=== PATIENT | female | born 1950 | race Caucasian/White ===

== ENCOUNTER 2018-04-14 21:01 | Inpatient (IN) ==
[2018-04-14] MEDS ORDERED: VANCOMYCIN INJ 1,000 MG in SODIUM CHLORIDE 0.9% 250 ML IV STA (21:39)
[2018-04-14] MEDS ORDERED: CLINDAMYCIN INJ 600 MG in PREMIX 1 EACH IV STA (21:39)
[2018-04-14 23:05] LABS: Basophils # 0.1 10*3/uL (0.0-0.2); Basophils % 0.3 % (0.0-0.8); Eosinophils % 0.3 % (0.00-10.9); Hemoglobin 13.5 GM/DL (12.0-16.0); Immature Granulocytes % 0.8 %; Immature Granulocytes Absolute 0.12 #; Lymphocytes # 1.6 10*3/uL (1.4-4.0); Mean Corpuscular HGB Conc 33.8 GM/DL (32-36); Mean Corpuscular Hemoglobin 32 PG (27-34); Mean Platelet Volume 9.8 FL (9.6-12.0); Neutrophils # 11.6 10*3/uL (1.4-7.4); Neutrophils % 80.6 % (38.7-73.9); Platelet Count 147 T/CUMM (130-400); Red Blood Count 4.21 MC/CUMM (3.8-5.5); Red Cell Distribution Width 13.1 % (9.3-17.3); White Blood Count 14.4 T/CUMM (4-12)
[2018-04-14 23:37] LABS: Albumin 3.1 G/DL (3.4-5.0); Bilirubin,Total 0.9 MG/DL (0.2-1.0); Calcium 9.2 MG/DL (8.5-10.1); Osmolality,Calculated 280.4 MOS/KG (273-304); Potassium 3.8 MMOL/L (3.5-5.1); Total Protein 7.6 G/DL (6.4-8.3)
[2018-04-15] MEDS ORDERED: ACETAMINOPHEN 500 MG TABLET PO PRN (00:54)
[2018-04-15] MEDS ORDERED: ONDANSETRON 4 MG/2 ML VIAL IV PRN (01:48)
[2018-04-15] MEDS ORDERED: DEXTROSE 50% 25 GM/50 ML VIAL IV PRN (01:48)
[2018-04-15] MEDS ORDERED: GLUCAGON 1 MG VIAL IM PRN (01:48)
[2018-04-15] MEDS: SODIUM CHLORIDE 0.9% 1,000 ML IV SCH ×3 (02:47→23:10)
[2018-04-15] MEDS: CLINDAMYCIN INJ 600 MG in PREMIX 1 EACH IV SCH ×3 (04:41→16:35)
[2018-04-15 06:42] LABS: Basophils % 0.3 % (0.0-0.8); Eosinophils % 0.3 % (0.00-10.9); Hematocrit 36.7 VOL% (35.7-47.0); Hemoglobin 12.7 GM/DL (12.0-16.0); Immature Granulocytes % 1.6 %; Immature Granulocytes Absolute 0.21 #; Lymphocytes # 1.8 10*3/uL (1.4-4.0); Lymphocytes % 13.8 % (21.3-54.2); Mean Corpuscular HGB Conc 34.6 GM/DL (32-36); Mean Corpuscular Hemoglobin 32 PG (27-34); Mean Corpuscular Volume 92.4 FL (87-102); Mean Platelet Volume 9.9 FL (9.6-12.0); Monocytes # 1.2 10*3/uL (0.11-0.8); Monocytes % 9.1 % (1.7-12.7); Neutrophils % 74.9 % (38.7-73.9); Platelet Count 136 T/CUMM (130-400); Red Blood Count 3.97 MC/CUMM (3.8-5.5); Red Cell Distribution Width 13.2 % (9.3-17.3); White Blood Count 13.4 T/CUMM (4-12)
[2018-04-15 06:54] LABS: Albumin 2.7 G/DL (3.4-5.0); Bilirubin,Total 1.3 MG/DL (0.2-1.0); Osmolality,Calculated 270.5 MOS/KG (273-304); Potassium 3.4 MMOL/L (3.5-5.1); Total Protein 6.9 G/DL (6.4-8.3)
[2018-04-15] MEDS: INSULIN REGULAR 100 UNIT/ML SUBCUT SCH ×4 (08:54→21:59)
[2018-04-15] MEDS: PANTOPRAZOLE 40 MG TABLET PO SCH (08:54)
[2018-04-15] MEDS: traMADol 50 MG TABLET PO SCH ×2 (16:35→21:59)
[2018-04-15 17:27] LABS: Apearance,Urine CLEAR (Clear); Bacteria,Urine Occasional /HPF (Few); Bilirubin,Urine Negative (Negative); Blood, Urine Small mg/dL (Negative); Glucose,Urine (UA) >=500 mg/dL (Negative); Ketones,Urine 5 mg/dL (Negative); Nitrite,Urine Negative (Negative); Protein,Urine Negative; RBC,Urine 2 /HPF (0-4); Squamous Epithelial Cell,Urine Occasional /HPF (0-10); Urine Color Yellow (Yellow); Urine Specific Gravity 1.011 (1.001-1.035); Urine Urobilinogen < 2.0 EU/DL (0.2-1.0); WBC,Urine 3 /HPF (0-6)
[2018-04-15] MEDS ORDERED: VANCOMYCIN INJ 1,750 MG in SODIUM CHLORIDE 0.9% 500 ML IV SCH (21:00)
[2018-04-15] MEDS: PRAVASTATIN 40 MG TABLET PO SCH (21:59)
[2018-04-16] MEDS: CLINDAMYCIN INJ 600 MG in PREMIX 1 EACH IV SCH ×2 (01:28→06:08)
[2018-04-16] MEDS: SODIUM CHLORIDE 0.9% 1,000 ML IV SCH ×3 (03:00→18:49)
[2018-04-16 06:15] LABS: Basophils % 0.3 % (0.0-0.8); Eosinophils # 0.1 10*3/uL (0.0-0.87); Eosinophils % 0.4 % (0.00-10.9); Hematocrit 35.2 VOL% (35.7-47.0); Hemoglobin 12.1 GM/DL (12.0-16.0); Immature Granulocytes % 0.9 %; Immature Granulocytes Absolute 0.12 #; Lymphocytes % 15.6 % (21.3-54.2); Mean Corpuscular HGB Conc 34.4 GM/DL (32-36); Mean Corpuscular Hemoglobin 32 PG (27-34); Mean Corpuscular Volume 93.6 FL (87-102); Mean Platelet Volume 9.8 FL (9.6-12.0); Monocytes # 1.2 10*3/uL (0.11-0.8); Monocytes % 9.4 % (1.7-12.7); Neutrophils # 9.5 10*3/uL (1.4-7.4); Neutrophils % 73.4 % (38.7-73.9); Platelet Count 160 T/CUMM (130-400); Red Blood Count 3.76 MC/CUMM (3.8-5.5); Red Cell Distribution Width 13.2 % (9.3-17.3)
[2018-04-16 06:43] LABS: Calcium 8.2 MG/DL (8.5-10.1); Osmolality,Calculated 279.7 MOS/KG (273-304); Potassium 3.7 MMOL/L (3.5-5.1)
[2018-04-16] MEDS ORDERED: DIAZEPAM 5 MG TABLET PO ONE (08:21)
[2018-04-16] MEDS ORDERED: FAMOTIDINE 20 MG TABLET PO ONE (08:21)
[2018-04-16] MEDS: ALBUTEROL 2.5 MG/3 ML NEB RESP TX SCH (09:20)
[2018-04-16] MEDS: INSULIN REGULAR 100 UNIT/ML SUBCUT SCH ×4 (09:45→21:22)
[2018-04-16] MEDS ORDERED: BUPIVACAINE MPF 0.25% 30 ML VIAL ONE (09:47)
[2018-04-16] MEDS ORDERED: LIDOCAINE 1% 20 ML VIAL ONE (09:47)
[2018-04-16] MEDS ORDERED: PROPOFOL 200 MG/20 ML VIAL IV ONE (11:10)
[2018-04-16] MEDS ORDERED: ONDANSETRON 4 MG/2 ML VIAL ONE (11:11)
[2018-04-16] MEDS ORDERED: fentaNYL 100 MCG/2 ML VIAL ONE (11:11)
[2018-04-16] MEDS ORDERED: SODIUM CHLORIDE 0.9% 100 ML IV ONE (11:11)
[2018-04-16] MEDS ORDERED: MIDAZOLAM 2 MG/2 ML VIAL ONE (11:11)
[2018-04-16] MEDS: DULoxetine 30 MG CAPSULE PO SCH (12:34)
[2018-04-16] MEDS: VANCOMYCIN INJ 1,750 MG in SODIUM CHLORIDE 0.9% 500 ML IV SCH ×2 (12:34→21:22)
[2018-04-16] MEDS: PANTOPRAZOLE 40 MG TABLET PO SCH (12:35)
[2018-04-16] MEDS: GLIMEPIRIDE 2 MG TABLET PO SCH (12:35)
[2018-04-16] MEDS: traMADol 50 MG TABLET PO SCH ×3 (12:35→21:21)
[2018-04-16] MEDS: UMECLIDINIUM BROMIDE INH SCH (12:36)
[2018-04-16] MEDS: ACETAMINOPHEN 325 MG TABLET PO PRN (15:34)
[2018-04-16] MEDS: PRAVASTATIN 40 MG TABLET PO SCH (21:20)
[2018-04-17 05:13] LABS: Basophils % 0.4 % (0.0-0.8); Eosinophils # 0.1 10*3/uL (0.0-0.87); Eosinophils % 1.1 % (0.00-10.9); Hematocrit 32.4 VOL% (35.7-47.0); Hemoglobin 10.9 GM/DL (12.0-16.0); Immature Granulocytes % 1.1 %; Immature Granulocytes Absolute 0.12 #; Lymphocytes # 1.8 10*3/uL (1.4-4.0); Lymphocytes % 16.4 % (21.3-54.2); Mean Corpuscular HGB Conc 33.6 GM/DL (32-36); Mean Corpuscular Hemoglobin 32 PG (27-34); Mean Corpuscular Volume 95.9 FL (87-102); Mean Platelet Volume 9.9 FL (9.6-12.0); Monocytes # 0.9 10*3/uL (0.11-0.8); Neutrophils # 8.2 10*3/uL (1.4-7.4); Platelet Count 160 T/CUMM (130-400); Red Blood Count 3.38 MC/CUMM (3.8-5.5); Red Cell Distribution Width 13.2 % (9.3-17.3); White Blood Count 11.2 T/CUMM (4-12)
[2018-04-17 05:51] LABS: Calcium 7.8 MG/DL (8.5-10.1); Osmolality,Calculated 281.5 MOS/KG (273-304); Potassium 3.2 MMOL/L (3.5-5.1)
[2018-04-17] MEDS: SODIUM CHLORIDE 0.9% 1,000 ML IV SCH ×3 (06:32→18:57)
[2018-04-17] MEDS: ALBUTEROL 2.5 MG/3 ML NEB RESP TX SCH (06:43)
[2018-04-17] MEDS: VANCOMYCIN INJ 1,750 MG in SODIUM CHLORIDE 0.9% 500 ML IV SCH ×2 (08:56→21:00)
[2018-04-17] MEDS: DULoxetine 30 MG CAPSULE PO SCH (08:57)
[2018-04-17] MEDS: PANTOPRAZOLE 40 MG TABLET PO SCH (08:57)
[2018-04-17] MEDS: INSULIN REGULAR 100 UNIT/ML SUBCUT SCH ×4 (08:57→23:55)
[2018-04-17] MEDS: GLIMEPIRIDE 2 MG TABLET PO SCH (08:57)
[2018-04-17] MEDS: traMADol 50 MG TABLET PO SCH ×3 (08:57→20:59)
[2018-04-17] MEDS: UMECLIDINIUM BROMIDE INH SCH ×2 (09:51→09:54)
[2018-04-17] MEDS: POTASSIUM CHLORIDE 20 MEQ TABLET PO SCH ×2 (09:54→20:59)
[2018-04-17] MEDS: SODIUM HYPOCHLORITE 0.25% IRRIG 473 ML BOTTLE TOP SCH (11:19)
[2018-04-17] MEDS: CLINDAMYCIN INJ 600 MG in PREMIX 1 EACH IV SCH ×2 (12:56→21:00)
[2018-04-17] MEDS: PRAVASTATIN 40 MG TABLET PO SCH (20:59)
[2018-04-17] MEDS: traZODone 50 MG TABLET PO PRN (21:01)
[2018-04-18 04:31] LABS: Basophils # 0.1 10*3/uL (0.0-0.2); Basophils % 0.6 % (0.0-0.8); Eosinophils # 0.1 10*3/uL (0.0-0.87); Eosinophils % 1.2 % (0.00-10.9); Hematocrit 34.3 VOL% (35.7-47.0); Hemoglobin 11.3 GM/DL (12.0-16.0); Immature Granulocytes % 1.6 %; Immature Granulocytes Absolute 0.16 #; Lymphocytes # 1.6 10*3/uL (1.4-4.0); Lymphocytes % 15.2 % (21.3-54.2); Mean Corpuscular HGB Conc 32.9 GM/DL (32-36); Mean Corpuscular Hemoglobin 31 PG (27-34); Mean Corpuscular Volume 95.3 FL (87-102); Mean Platelet Volume 9.8 FL (9.6-12.0); Monocytes # 0.8 10*3/uL (0.11-0.8); Monocytes % 7.6 % (1.7-12.7); Neutrophils # 7.6 10*3/uL (1.4-7.4); Neutrophils % 73.8 % (38.7-73.9); Platelet Count 201 T/CUMM (130-400); Red Cell Distribution Width 13.1 % (9.3-17.3); White Blood Count 10.3 T/CUMM (4-12)
[2018-04-18 05:06] LABS: Calcium 7.9 MG/DL (8.5-10.1); Osmolality,Calculated 283.4 MOS/KG (273-304); Potassium 3.4 MMOL/L (3.5-5.1)
[2018-04-18] MEDS: CLINDAMYCIN INJ 600 MG in PREMIX 1 EACH IV SCH ×3 (05:54→20:27)
[2018-04-18] MEDS: SODIUM CHLORIDE 0.9% 1,000 ML IV SCH ×2 (05:55→18:19)
[2018-04-18] MEDS: ALBUTEROL 2.5 MG/3 ML NEB RESP TX SCH (07:20)
[2018-04-18] MEDS: INSULIN REGULAR 100 UNIT/ML SUBCUT SCH ×4 (08:24→22:57)
[2018-04-18] MEDS: GLIMEPIRIDE 2 MG TABLET PO SCH (08:27)
[2018-04-18] MEDS: POTASSIUM CHLORIDE 20 MEQ TABLET PO SCH ×2 (08:27→20:25)
[2018-04-18] MEDS: DULoxetine 30 MG CAPSULE PO SCH (08:27)
[2018-04-18] MEDS: SODIUM HYPOCHLORITE 0.25% IRRIG 473 ML BOTTLE TOP SCH (08:28)
[2018-04-18] MEDS: traMADol 50 MG TABLET PO SCH ×3 (08:28→20:25)
[2018-04-18] MEDS: PANTOPRAZOLE 40 MG TABLET PO SCH (08:28)
[2018-04-18] MEDS: UMECLIDINIUM BROMIDE INH SCH (08:29)
[2018-04-18] MEDS: VANCOMYCIN INJ 1,750 MG in SODIUM CHLORIDE 0.9% 500 ML IV SCH ×2 (08:58→23:01)
[2018-04-18] MEDS: AMITRIPTYLINE 100 MG TABLET PO SCH (10:02)
[2018-04-18] MEDS: ENALAPRIL 10 MG TABLET PO SCH (10:02)
[2018-04-18] MEDS: PREGABALIN 75 MG CAPSULE PO SCH ×2 (15:11→20:25)
[2018-04-18] MEDS: traZODone 50 MG TABLET PO PRN (20:25)
[2018-04-18] MEDS: PRAVASTATIN 40 MG TABLET PO SCH (20:26)
[2018-04-18] MEDS: INSULIN GLARGINE 100 UNIT/ML SUBCUT SCH (20:26)
[2018-04-18] MEDS ORDERED: INSULIN GLARGINE 100 UNIT/ML SUBCUT SCH (21:00)
[2018-04-18] MEDS: ALBUTEROL/IPRATROPIUM 3 ML NEB RESP TX PRN (23:00)
[2018-04-18] MEDS ORDERED: FUROSEMIDE 40 MG/4 ML VIAL IV ONE (23:00)
[2018-04-19] MEDS: CLINDAMYCIN INJ 600 MG in PREMIX 1 EACH IV SCH ×3 (05:15→20:19)
[2018-04-19] MEDS: SODIUM CHLORIDE 0.9% 1,000 ML IV SCH (05:16)
[2018-04-19 06:43] LABS: Basophils # 0.1 10*3/uL (0.0-0.2); Basophils % 0.6 % (0.0-0.8); Eosinophils # 0.2 10*3/uL (0.0-0.87); Eosinophils % 1.4 % (0.00-10.9); Hematocrit 34.3 VOL% (35.7-47.0); Hemoglobin 11.2 GM/DL (12.0-16.0); Immature Granulocytes % 2.3 %; Immature Granulocytes Absolute 0.24 #; Lymphocytes % 18.8 % (21.3-54.2); Mean Corpuscular HGB Conc 32.7 GM/DL (32-36); Mean Corpuscular Hemoglobin 32 PG (27-34); Mean Corpuscular Volume 96.6 FL (87-102); Mean Platelet Volume 9.1 FL (9.6-12.0); Monocytes # 0.7 10*3/uL (0.11-0.8); NRBC # 0.02 10*3/uL; Neutrophils # 7.4 10*3/uL (1.4-7.4); Neutrophils % 69.9 % (38.7-73.9); Platelet Count 251 T/CUMM (130-400); Red Blood Count 3.55 MC/CUMM (3.8-5.5); Red Cell Distribution Width 13.4 % (9.3-17.3); White Blood Count 10.5 T/CUMM (4-12)
[2018-04-19 07:11] LABS: Osmolality,Calculated 281.3 MOS/KG (273-304); Potassium 3.5 MMOL/L (3.5-5.1)
[2018-04-19] MEDS: ALBUTEROL 2.5 MG/3 ML NEB RESP TX SCH (07:39)
[2018-04-19] MEDS: SODIUM HYPOCHLORITE 0.25% IRRIG 473 ML BOTTLE TOP SCH (09:00)
[2018-04-19] MEDS: ENALAPRIL 10 MG TABLET PO SCH (09:35)
[2018-04-19] MEDS: traMADol 50 MG TABLET PO SCH ×3 (09:35→20:19)
[2018-04-19] MEDS: AMITRIPTYLINE 100 MG TABLET PO SCH (09:35)
[2018-04-19] MEDS: PREGABALIN 75 MG CAPSULE PO SCH ×3 (09:35→20:18)
[2018-04-19] MEDS: POTASSIUM CHLORIDE 20 MEQ TABLET PO SCH ×2 (09:35→20:20)
[2018-04-19] MEDS: FUROSEMIDE 20 MG/2 ML VIAL IV SCH (09:36)
[2018-04-19] MEDS: PANTOPRAZOLE 40 MG TABLET PO SCH (09:36)
[2018-04-19] MEDS: GLIMEPIRIDE 2 MG TABLET PO SCH (09:36)
[2018-04-19] MEDS: DULoxetine 30 MG CAPSULE PO SCH (09:36)
[2018-04-19] MEDS: VANCOMYCIN INJ 1,750 MG in SODIUM CHLORIDE 0.9% 500 ML IV SCH (09:39)
[2018-04-19] MEDS: INSULIN REGULAR 100 UNIT/ML SUBCUT SCH ×4 (10:04→20:37)
[2018-04-19] MEDS: UMECLIDINIUM BROMIDE INH SCH (10:05)
[2018-04-19] MEDS: ALBUTEROL/IPRATROPIUM 3 ML NEB RESP TX PRN ×2 (13:25→22:07)
[2018-04-19] MEDS: traZODone 50 MG TABLET PO PRN (20:18)
[2018-04-19] MEDS: PRAVASTATIN 40 MG TABLET PO SCH (20:18)
[2018-04-19] MEDS: INSULIN GLARGINE 100 UNIT/ML SUBCUT SCH (20:37)
[2018-04-20] MEDS: ACETAMINOPHEN 325 MG TABLET PO PRN (00:21)
[2018-04-20] MEDS: CLINDAMYCIN INJ 600 MG in PREMIX 1 EACH IV SCH (05:52)
[2018-04-20 06:25] LABS: Calcium 8.3 MG/DL (8.5-10.1); Potassium 3.4 MMOL/L (3.5-5.1)
[2018-04-20] MEDS: ALBUTEROL 2.5 MG/3 ML NEB RESP TX SCH (07:44)
[2018-04-20] MEDS: traMADol 50 MG TABLET PO SCH ×3 (09:05→20:34)
[2018-04-20] MEDS: AMITRIPTYLINE 100 MG TABLET PO SCH (09:06)
[2018-04-20] MEDS: DULoxetine 30 MG CAPSULE PO SCH (09:06)
[2018-04-20] MEDS: ENALAPRIL 10 MG TABLET PO SCH (09:06)
[2018-04-20] MEDS: PANTOPRAZOLE 40 MG TABLET PO SCH (09:06)
[2018-04-20] MEDS: GLIMEPIRIDE 2 MG TABLET PO SCH (09:06)
[2018-04-20] MEDS: POTASSIUM CHLORIDE 20 MEQ TABLET PO SCH ×2 (09:07→20:35)
[2018-04-20] MEDS: PREGABALIN 75 MG CAPSULE PO SCH ×3 (09:07→20:34)
[2018-04-20] MEDS: FUROSEMIDE 20 MG/2 ML VIAL IV SCH (09:08)
[2018-04-20] MEDS: VANCOMYCIN INJ 1,750 MG in SODIUM CHLORIDE 0.9% 500 ML IV SCH (09:08)
[2018-04-20] MEDS: SODIUM HYPOCHLORITE 0.25% IRRIG 473 ML BOTTLE TOP SCH (09:08)
[2018-04-20] MEDS: POLYETHYLENE GLYCOL POWDER 17 GM PACK PO SCH (09:30)
[2018-04-20] MEDS: INSULIN REGULAR 100 UNIT/ML SUBCUT SCH ×4 (10:26→20:36)
[2018-04-20] MEDS: UMECLIDINIUM BROMIDE INH SCH (10:27)
[2018-04-20] MEDS: PRAVASTATIN 40 MG TABLET PO SCH (20:35)
[2018-04-20] MEDS: INSULIN GLARGINE 100 UNIT/ML SUBCUT SCH (20:35)
[2018-04-20] MEDS: traZODone 50 MG TABLET PO PRN (20:35)
[2018-04-21] MEDS: VANCOMYCIN INJ 1,750 MG in SODIUM CHLORIDE 0.9% 500 ML IV SCH (03:15)
[2018-04-21] MEDS: ALBUTEROL 2.5 MG/3 ML NEB RESP TX SCH (07:51)
[2018-04-21] MEDS: INSULIN REGULAR 100 UNIT/ML SUBCUT SCH ×4 (08:36→22:05)
[2018-04-21] MEDS: FUROSEMIDE 20 MG/2 ML VIAL IV SCH (08:46)
[2018-04-21] MEDS: PANTOPRAZOLE 40 MG TABLET PO SCH (08:46)
[2018-04-21] MEDS: DULoxetine 30 MG CAPSULE PO SCH (08:46)
[2018-04-21] MEDS: POLYETHYLENE GLYCOL POWDER 17 GM PACK PO SCH (08:46)
[2018-04-21] MEDS: GLIMEPIRIDE 2 MG TABLET PO SCH (08:47)
[2018-04-21] MEDS: POTASSIUM CHLORIDE 20 MEQ TABLET PO SCH ×2 (08:47→22:03)
[2018-04-21] MEDS: ENALAPRIL 10 MG TABLET PO SCH (08:47)
[2018-04-21] MEDS: PREGABALIN 75 MG CAPSULE PO SCH ×3 (08:49→22:03)
[2018-04-21] MEDS: traMADol 50 MG TABLET PO SCH ×3 (08:50→22:03)
[2018-04-21] MEDS: AMITRIPTYLINE 100 MG TABLET PO SCH (08:51)
[2018-04-21 09:48] LABS: Basophils # 0.1 10*3/uL (0.0-0.2); Basophils % 0.6 % (0.0-0.8); Eosinophils # 0.2 10*3/uL (0.0-0.87); Eosinophils % 1.9 % (0.00-10.9); Hemoglobin 12.2 GM/DL (12.0-16.0); Immature Granulocytes % 2.5 %; Immature Granulocytes Absolute 0.26 #; Lymphocytes # 2.7 10*3/uL (1.4-4.0); Lymphocytes % 26.4 % (21.3-54.2); Mean Corpuscular HGB Conc 33.9 GM/DL (32-36); Mean Corpuscular Hemoglobin 32 PG (27-34); Mean Platelet Volume 8.5 FL (9.6-12.0); Monocytes # 0.6 10*3/uL (0.11-0.8); Monocytes % 5.3 % (1.7-12.7); Neutrophils # 6.5 10*3/uL (1.4-7.4); Neutrophils % 63.3 % (38.7-73.9); Platelet Count 266 T/CUMM (130-400); Red Blood Count 3.83 MC/CUMM (3.8-5.5); Red Cell Distribution Width 13.4 % (9.3-17.3); White Blood Count 10.3 T/CUMM (4-12)
[2018-04-21 10:11] LABS: Calcium 8.8 MG/DL (8.5-10.1); Osmolality,Calculated 281.3 MOS/KG (273-304); Potassium 3.7 MMOL/L (3.5-5.1)
[2018-04-21] MEDS: UMECLIDINIUM BROMIDE INH SCH (10:42)
[2018-04-21] MEDS: SODIUM HYPOCHLORITE 0.25% IRRIG 473 ML BOTTLE TOP SCH (10:42)
[2018-04-21] MEDS ORDERED: FUROSEMIDE 20 MG/2 ML VIAL IV SCH (16:00)
[2018-04-21] MEDS: traZODone 50 MG TABLET PO PRN (22:03)
[2018-04-21] MEDS: MICONAZOLE 2% VAG CREAM 45 GM TUBE VAG SCH (22:05)
[2018-04-21] MEDS: PRAVASTATIN 40 MG TABLET PO SCH (22:05)
[2018-04-21] MEDS: INSULIN GLARGINE 100 UNIT/ML SUBCUT SCH (22:06)
[2018-04-22] MEDS: AMITRIPTYLINE 100 MG TABLET PO SCH (00:20)
[2018-04-22] MEDS: VANCOMYCIN INJ 1,750 MG in SODIUM CHLORIDE 0.9% 500 ML IV SCH ×2 (00:20→15:34)
[2018-04-22] MEDS: ALBUTEROL/IPRATROPIUM 3 ML NEB RESP TX PRN (05:50)
[2018-04-22] MEDS: ALBUTEROL 2.5 MG/3 ML NEB RESP TX SCH (07:18)
[2018-04-22] MEDS: INSULIN REGULAR 100 UNIT/ML SUBCUT SCH ×4 (07:58→21:56)
[2018-04-22] MEDS: POTASSIUM CHLORIDE 20 MEQ TABLET PO SCH ×2 (08:24→21:56)
[2018-04-22] MEDS: traMADol 50 MG TABLET PO SCH ×3 (08:24→21:56)
[2018-04-22] MEDS: GLIMEPIRIDE 2 MG TABLET PO SCH (08:24)
[2018-04-22] MEDS: DULoxetine 30 MG CAPSULE PO SCH (08:24)
[2018-04-22] MEDS: PREGABALIN 75 MG CAPSULE PO SCH ×3 (08:24→21:56)
[2018-04-22] MEDS: PANTOPRAZOLE 40 MG TABLET PO SCH (08:25)
[2018-04-22] MEDS: FUROSEMIDE 40 MG/4 ML VIAL IV SCH (08:25)
[2018-04-22] MEDS: POLYETHYLENE GLYCOL POWDER 17 GM PACK PO SCH (08:25)
[2018-04-22] MEDS: ENALAPRIL 10 MG TABLET PO SCH (08:25)
[2018-04-22] MEDS: SODIUM HYPOCHLORITE 0.25% IRRIG 473 ML BOTTLE TOP SCH (08:28)
[2018-04-22] MEDS: UMECLIDINIUM BROMIDE INH SCH (08:29)
[2018-04-22 09:58] LABS: Basophils # 0.1 10*3/uL (0.0-0.2); Basophils % 0.5 % (0.0-0.8); Eosinophils # 0.2 10*3/uL (0.0-0.87); Eosinophils % 1.4 % (0.00-10.9); Hematocrit 37.8 VOL% (35.7-47.0); Hemoglobin 12.5 GM/DL (12.0-16.0); Immature Granulocytes Absolute 0.22 #; Lymphocytes # 2.5 10*3/uL (1.4-4.0); Lymphocytes % 22.5 % (21.3-54.2); Mean Corpuscular HGB Conc 33.1 GM/DL (32-36); Mean Corpuscular Hemoglobin 32 PG (27-34); Mean Corpuscular Volume 95.5 FL (87-102); Mean Platelet Volume 8.6 FL (9.6-12.0); Monocytes # 0.6 10*3/uL (0.11-0.8); Monocytes % 5.1 % (1.7-12.7); Neutrophils # 7.6 10*3/uL (1.4-7.4); Neutrophils % 68.5 % (38.7-73.9); Platelet Count 286 T/CUMM (130-400); Red Blood Count 3.96 MC/CUMM (3.8-5.5); Red Cell Distribution Width 13.2 % (9.3-17.3); White Blood Count 11.1 T/CUMM (4-12)
[2018-04-22 10:26] LABS: Osmolality,Calculated 279.5 MOS/KG (273-304); Potassium 3.8 MMOL/L (3.5-5.1)
[2018-04-22] MEDS ORDERED: diphenhydrAMINE CAP 25 MG CAPSULE PO PRN (13:36)
[2018-04-22] MEDS: CLINDAMYCIN INJ 600 MG in PREMIX 1 EACH IV SCH ×2 (13:38→21:57)
[2018-04-22 15:58] LABS: Apearance,Urine CLEAR (Clear); Bilirubin,Urine Negative (Negative); Blood, Urine Small mg/dL (Negative); Glucose,Urine (UA) Negative (Negative); Ketones,Urine Negative (Negative); Mucus,Urine Occasional /LPF (Occasional); Nitrite,Urine Negative (Negative); Protein,Urine Negative; Squamous Epithelial Cell,Urine Occasional /HPF (0-10); Urine Color Colorless (Yellow); Urine Specific Gravity 1.004 (1.001-1.035); Urine Urobilinogen < 2.0 EU/DL (0.2-1.0); WBC,Urine <1 /HPF (0-6)
[2018-04-22] MEDS ORDERED: AMITRIPTYLINE 100 MG TABLET PO SCH (21:00)
[2018-04-22] MEDS: PRAVASTATIN 40 MG TABLET PO SCH (21:56)
[2018-04-22] MEDS: INSULIN GLARGINE 100 UNIT/ML SUBCUT SCH (21:57)
[2018-04-22] MEDS: MICONAZOLE 2% VAG CREAM 45 GM TUBE VAG SCH (21:57)
[2018-04-23] MEDS: CLINDAMYCIN INJ 600 MG in PREMIX 1 EACH IV SCH ×2 (05:53→13:09)
[2018-04-23 07:08] LABS: Basophils # 0.1 10*3/uL (0.0-0.2); Basophils % 0.6 % (0.0-0.8); Eosinophils # 0.2 10*3/uL (0.0-0.87); Eosinophils % 2.5 % (0.00-10.9); Hematocrit 36.6 VOL% (35.7-47.0); Hemoglobin 11.9 GM/DL (12.0-16.0); Immature Granulocytes % 1.9 %; Immature Granulocytes Absolute 0.16 #; Lymphocytes # 2.1 10*3/uL (1.4-4.0); Lymphocytes % 24.9 % (21.3-54.2); Mean Corpuscular HGB Conc 32.5 GM/DL (32-36); Mean Corpuscular Hemoglobin 31 PG (27-34); Mean Corpuscular Volume 95.8 FL (87-102); Mean Platelet Volume 8.5 FL (9.6-12.0); Monocytes # 0.4 10*3/uL (0.11-0.8); Monocytes % 5.3 % (1.7-12.7); Neutrophils # 5.3 10*3/uL (1.4-7.4); Neutrophils % 64.8 % (38.7-73.9); Platelet Count 238 T/CUMM (130-400); Red Blood Count 3.82 MC/CUMM (3.8-5.5); Red Cell Distribution Width 13.2 % (9.3-17.3); White Blood Count 8.2 T/CUMM (4-12)
[2018-04-23] MEDS: ALBUTEROL 2.5 MG/3 ML NEB RESP TX SCH (07:30)
[2018-04-23 07:35] LABS: Calcium 8.2 MG/DL (8.5-10.1); Osmolality,Calculated 281.4 MOS/KG (273-304); Potassium 4.1 MMOL/L (3.5-5.1)
[2018-04-23] MEDS: INSULIN REGULAR 100 UNIT/ML SUBCUT SCH ×2 (08:10→12:42)
[2018-04-23] MEDS: GLIMEPIRIDE 2 MG TABLET PO SCH (09:00)
[2018-04-23] MEDS ORDERED: FLUTICASONE 50 MCG NASAL SPRAY 16 GM BOTTLE BOTH NARES SCH (09:00)
[2018-04-23] MEDS: DULoxetine 30 MG CAPSULE PO SCH (09:01)
[2018-04-23] MEDS: POTASSIUM CHLORIDE 20 MEQ TABLET PO SCH (09:01)
[2018-04-23] MEDS: PANTOPRAZOLE 40 MG TABLET PO SCH (09:01)
[2018-04-23] MEDS: ENALAPRIL 10 MG TABLET PO SCH (09:01)
[2018-04-23] MEDS: PREGABALIN 75 MG CAPSULE PO SCH (09:01)
[2018-04-23] MEDS: POLYETHYLENE GLYCOL POWDER 17 GM PACK PO SCH (09:02)
[2018-04-23] MEDS: SODIUM HYPOCHLORITE 0.25% IRRIG 473 ML BOTTLE TOP SCH (09:02)
[2018-04-23] MEDS: UMECLIDINIUM BROMIDE INH SCH (09:02)
[2018-04-23] MEDS: FUROSEMIDE 40 MG/4 ML VIAL IV SCH (09:03)
[2018-04-23] MEDS: VANCOMYCIN INJ 1,750 MG in SODIUM CHLORIDE 0.9% 500 ML IV SCH (09:06)
[2018-04-23 11:39] VITALS: BP 125/75
== END 2018-04-23 14:11 | DRG 853 ==
LOC: N.ED 21:01 → N.EDINP 23:55 → N.2E 04-15 00:08
PROVIDERS: ADMIT Family Medicine; ATTEND Family Medicine

== ENCOUNTER 2019-07-01 15:08 | Inpatient (IN) ==
[2019-07-01] MEDS ORDERED: ORPHENADRINE 60 MG/2 ML VIAL IV STA (16:07)
[2019-07-01] MEDS ORDERED: KETOROLAC 30 MG/1 ML VIAL IV STA (16:07)
[2019-07-01] MEDS ORDERED: SODIUM CHLORIDE 0.9% 500 ML IV STA (16:07)
[2019-07-01] MEDS ORDERED: ALBUTEROL/IPRATROPIUM 3 ML NEB RESP TX STA (16:20)
[2019-07-01 16:50] LABS: Basophils % 0.5 % (0.0-0.8); Eosinophils # 0.1 10*3/uL (0.0-0.87); Eosinophils % 0.8 % (0.00-10.9); Hematocrit 46.7 VOL% (35.7-47.0); Immature Granulocytes % 0.2 %; Immature Granulocytes Absolute 0.02 #; Lymphocytes # 1.8 10*3/uL (1.4-4.0); Lymphocytes % 21.3 % (21.3-54.2); Mean Corpuscular HGB Conc 34.3 GM/DL (32-36); Mean Corpuscular Volume 93.2 FL (87-102); Mean Platelet Volume 10.1 FL (9.6-12.0); Monocytes % 10.6 % (1.7-12.7); Neutrophils % 66.6 % (38.7-73.9); Platelet Count 103 T/CUMM (130-400); Red Blood Count 5.01 MC/CUMM (3.8-5.5); Red Cell Distribution Width 13.3 % (9.3-17.3); White Blood Count 8.6 T/CUMM (4-12)
[2019-07-01 17:01] LABS: PT Patient Result 10.8 SECS (9.6-12.2); Partial Thromboplastin Time 24.7 SECS (20.8-36.0)
[2019-07-01 17:16] LABS: Alanine Aminotransferase 49 U/L (13-56); Albumin 3.4 G/DL (3.4-5.0); Alkaline Phosphatase 109 U/L (45-117); Aspartate Amino Transferase 62 U/L (0-37); Blood Urea Nitrogen 20 MG/DL (7-18); Calcium 10.1 MG/DL (8.5-10.1); Estimated Glom Filtration Rate 72 ML/MIN; Glucose 300 MG/DL (74-106); Osmolality,Calculated 281.2 MOS/KG (273-304); Total Protein 7.1 G/DL (6.4-8.3)
[2019-07-01 17:17] LABS: Free T4 (Free Thyroxine) 1.16 NG/DL (0.76-1.46); Troponin I < 0.015 NG/ML (0.00-0.045)
[2019-07-01 17:29] LABS: Apearance,Urine Clear (Clear); Bacteria,Urine Occasional /HPF (Few); Bilirubin,Urine Negative (Negative); Blood, Urine Small mg/dL (Negative); Glucose,Urine (UA) 150 mg/dL (Negative); Ketones,Urine Negative (Negative); Mucus,Urine Occasional /LPF (Occasional); Nitrite,Urine Positive (Negative); Protein,Urine 30 MG/DL; RBC,Urine 5 /HPF (0-4); Squamous Epithelial Cell,Urine Occasional /HPF (0-10); Urine Color Amber (Yellow); Urine Specific Gravity 1.015 (1.001-1.035); WBC,Urine 33 /HPF (0-6)
[2019-07-01] MEDS ORDERED: LEVOFLOXACIN INJ 750 MG in PREMIX 1 EACH IV STA (17:41)
[2019-07-01] MEDS ORDERED: SODIUM CHLORIDE 0.9% 1,000 ML IV STA (17:42)
[2019-07-01 17:47] LABS: Barbiturates Screen,Urine Negative (Negative); Benzodiazepines Screen,Urine Negative (Negative); Cannabinoid Screen,Urine Negative (Negative); Opiate Screen,Urine Negative (Negative); Phencyclidine Screen,Urine Negative (Negative)
[2019-07-01] MEDS ORDERED: DEXTROSE 50% 25 GM/50 ML VIAL IV PRN (18:18)
[2019-07-01] MEDS ORDERED: GLUCAGON 1 MG VIAL IM PRN (18:18)
[2019-07-01] MEDS ORDERED: ACETAMINOPHEN 325 MG TABLET PO PRN (18:18)
[2019-07-01] MEDS ORDERED: ALBUTEROL 2.5 MG/3 ML NEB RESP TX PRN (18:21)
[2019-07-01] MEDS ORDERED: LEVOFLOXACIN INJ 500 MG in PREMIX 1 EACH IV SCH (18:30)
[2019-07-01] MEDS: ALBUTEROL/IPRATROPIUM 3 ML NEB RESP TX SCH (18:55)
[2019-07-01] MEDS: SODIUM CHLORIDE 0.9% 1,000 ML IV SCH (21:03)
[2019-07-01] MEDS: INSULIN REGULAR 100 UNIT/ML SUBCUT SCH (22:28)
[2019-07-02] MEDS: ALBUTEROL/IPRATROPIUM 3 ML NEB RESP TX SCH ×4 (00:38→19:25)
[2019-07-02 05:00] LABS: Basophils % 0.1 % (0.0-0.8); Eosinophils # 0.1 10*3/uL (0.0-0.87); Eosinophils % 0.9 % (0.00-10.9); Hematocrit 41.3 VOL% (35.7-47.0); Hemoglobin 13.8 GM/DL (12.0-16.0); Immature Granulocytes % 0.4 %; Immature Granulocytes Absolute 0.03 #; Lymphocytes # 1.6 10*3/uL (1.4-4.0); Lymphocytes % 22.3 % (21.3-54.2); Mean Corpuscular HGB Conc 33.4 GM/DL (32-36); Mean Corpuscular Volume 95.4 FL (87-102); Mean Platelet Volume 10.2 FL (9.6-12.0); Monocytes % 11.4 % (1.7-12.7); Neutrophils % 64.9 % (38.7-73.9); Platelet Count 89 T/CUMM (130-400); Red Blood Count 4.33 MC/CUMM (3.8-5.5); Red Cell Distribution Width 13.5 % (9.3-17.3); White Blood Count 6.9 T/CUMM (4-12)
[2019-07-02 05:23] LABS: Microcytosis 1+; Platelet Estimate Decreased
[2019-07-02 05:24] LABS: Hypochromasia Slight
[2019-07-02 05:31] LABS: Albumin 2.8 G/DL (3.4-5.0); Bilirubin,Total 0.8 MG/DL (0.2-1.0); Osmolality,Calculated 283.7 MOS/KG (273-304); Risk Ratio 4.36; Thyroid Stimulating Hormone 0.997 uIU/ml (0.358-3.74); Total Protein 6.1 G/DL (6.4-8.3); VLDL CHOLESTEROL 29.8 MG/DL
[2019-07-02] MEDS: SODIUM CHLORIDE 0.9% 1,000 ML IV SCH ×3 (06:24→23:55)
[2019-07-02] MEDS: INSULIN REGULAR 100 UNIT/ML SUBCUT SCH ×4 (08:05→21:06)
[2019-07-02] MEDS ORDERED: SIMVASTATIN 20 MG TABLET PO SCH (09:00)
[2019-07-02] MEDS ORDERED: ALBUTEROL SULFATE PO SCH (09:00)
[2019-07-02] MEDS ORDERED: UMECLIDINIUM INH SCH (09:00)
[2019-07-02] MEDS ORDERED: traZODone 50 MG TABLET PO PRN (11:08)
[2019-07-02] MEDS: COENZYME Q10 100 MG CAPSULE PO SCH ×2 (12:20→21:04)
[2019-07-02] MEDS: LEVOFLOXACIN INJ 750 MG in PREMIX 1 EACH IV SCH (18:06)
[2019-07-02] MEDS: INSULIN GLARGINE 100 UNIT/ML SUBCUT SCH (21:05)
[2019-07-03] MEDS: ALBUTEROL/IPRATROPIUM 3 ML NEB RESP TX SCH ×4 (00:07→19:33)
[2019-07-03 06:11] LABS: Basophils % 0.5 % (0.0-0.8); Eosinophils # 0.1 10*3/uL (0.0-0.87); Eosinophils % 1.1 % (0.00-10.9); Hematocrit 40.1 VOL% (35.7-47.0); Hemoglobin 13.6 GM/DL (12.0-16.0); Immature Granulocytes % 0.5 %; Immature Granulocytes Absolute 0.03 #; Lymphocytes % 32.5 % (21.3-54.2); Mean Corpuscular HGB Conc 33.9 GM/DL (32-36); Mean Corpuscular Volume 94.4 FL (87-102); Mean Platelet Volume 10.4 FL (9.6-12.0); Monocytes % 13.6 % (1.7-12.7); Neutrophils % 51.8 % (38.7-73.9); Platelet Count 108 T/CUMM (130-400); Red Blood Count 4.25 MC/CUMM (3.8-5.5); Red Cell Distribution Width 13.4 % (9.3-17.3); White Blood Count 6.3 T/CUMM (4-12)
[2019-07-03 06:21] LABS: Albumin 2.8 G/DL (3.4-5.0); Bilirubin,Total 0.6 MG/DL (0.2-1.0); Calcium 9.2 MG/DL (8.5-10.1); Osmolality,Calculated 283.3 MOS/KG (273-304); Total Protein 6.1 G/DL (6.4-8.3)
[2019-07-03] MEDS: GLIMEPIRIDE 2 MG TABLET PO SCH (08:19)
[2019-07-03] MEDS: ENALAPRIL 20 MG TABLET PO SCH (08:19)
[2019-07-03] MEDS: DULoxetine 30 MG CAPSULE PO SCH (08:19)
[2019-07-03] MEDS: COENZYME Q10 100 MG CAPSULE PO SCH ×2 (08:19→20:35)
[2019-07-03] MEDS: INSULIN REGULAR 100 UNIT/ML SUBCUT SCH ×4 (08:20→20:35)
[2019-07-03] MEDS: SODIUM CHLORIDE 0.9% 1,000 ML IV SCH (11:39)
[2019-07-03] MEDS ORDERED: traZODone 50 MG TABLET PO PRN (12:56)
[2019-07-03] MEDS: LEVOFLOXACIN INJ 750 MG in PREMIX 1 EACH IV SCH (17:39)
[2019-07-03] MEDS: PREGABALIN 100 MG CAPSULE PO SCH (20:35)
[2019-07-03] MEDS: INSULIN GLARGINE 100 UNIT/ML SUBCUT SCH (20:36)
[2019-07-03] MEDS ORDERED: AMITRIPTYLINE 100 MG TABLET PO SCH (21:00)
[2019-07-04] MEDS: ALBUTEROL/IPRATROPIUM 3 ML NEB RESP TX SCH ×2 (00:28→07:43)
[2019-07-04] MEDS: SODIUM CHLORIDE 0.9% 1,000 ML IV SCH (00:42)
[2019-07-04 05:47] LABS: Basophils % 0.5 % (0.0-0.8); Eosinophils # 0.1 10*3/uL (0.0-0.87); Eosinophils % 1.5 % (0.00-10.9); Hematocrit 40.2 VOL% (35.7-47.0); Hemoglobin 13.4 GM/DL (12.0-16.0); Immature Granulocytes % 0.7 %; Immature Granulocytes Absolute 0.04 #; Lymphocytes # 2.7 10*3/uL (1.4-4.0); Lymphocytes % 45.4 % (21.3-54.2); Mean Corpuscular HGB Conc 33.3 GM/DL (32-36); Monocytes % 9.5 % (1.7-12.7); Neutrophils % 42.4 % (38.7-73.9); Platelet Count 110 T/CUMM (130-400); Red Blood Count 4.23 MC/CUMM (3.8-5.5); Red Cell Distribution Width 13.4 % (9.3-17.3)
[2019-07-04 06:09] LABS: Albumin 2.6 G/DL (3.4-5.0); Bilirubin,Total 0.6 MG/DL (0.2-1.0); Calcium 8.9 MG/DL (8.5-10.1); Osmolality,Calculated 287.6 MOS/KG (273-304); Total Protein 5.8 G/DL (6.4-8.3)
[2019-07-04] MEDS: INSULIN REGULAR 100 UNIT/ML SUBCUT SCH (09:33)
[2019-07-04] MEDS: DULoxetine 30 MG CAPSULE PO SCH (09:56)
[2019-07-04] MEDS: PREGABALIN 100 MG CAPSULE PO SCH (09:56)
[2019-07-04] MEDS: COENZYME Q10 100 MG CAPSULE PO SCH (09:56)
[2019-07-04] MEDS: ENALAPRIL 20 MG TABLET PO SCH (09:57)
[2019-07-04] MEDS: GLIMEPIRIDE 2 MG TABLET PO SCH (09:58)
[2019-07-04 11:14] VITALS: BP 116/64
== END 2019-07-04 13:05 | disposition home health service (06) | DRG 558 ==
LOC: N.ED 15:08 → N.EDINP 15:08 → SUATTDRO 18:18 → N.5E 19:39
PROVIDERS: ADMIT Emergency Medicine; ATTEND Emergency Medicine

== ENCOUNTER 2021-05-23 10:16 | Inpatient (IN) ==
[2021-05-23 12:09] LABS: Basophils # 0.1 10*3/uL (0.0-0.2); Basophils % 0.5 % (0.0-0.8); Eosinophils # 0.1 10*3/uL (0.0-0.87); Eosinophils % 1.3 % (0.00-10.9); Hematocrit 53.4 VOL% (35.7-47.0); Hemoglobin 17.6 GM/DL (12.0-16.0); Immature Granulocytes % 0.4 %; Immature Granulocytes Absolute 0.04 #; Lymphocytes # 3.1 10*3/uL (1.4-4.0); Lymphocytes % 28.4 % (21.3-54.2); Mean Platelet Volume 9.7 FL (9.6-12.0); Monocytes % 7.3 % (1.7-12.7); Neutrophils % 62.1 % (38.7-73.9); Platelet Count 170 T/CUMM (130-400); Red Cell Distribution Width 14.1 % (9.3-17.3); White Blood Count 10.9 T/CUMM (4-12)
[2021-05-23 12:26] LABS: Partial Thromboplastin Time 26.2 SECS (23.9-33.8)
[2021-05-23 12:30] LABS: Albumin 3.9 G/DL (3.4-5.0); Bilirubin,Total 0.5 MG/DL (0.20-1.00); Calcium 10.8 MG/DL (8.5-10.1); Osmolality,Calculated 278.7 MOS/KG (273-304); Potassium 3.6 MMOL/L (3.5-5.1)
[2021-05-23] MEDS ORDERED: GLUCAGON 1 MG VIAL IM PRN ×2 (14:25→16:13)
[2021-05-23] MEDS ORDERED: DEXTROSE 50% 25 GM/50 ML VIAL IV PRN ×2 (14:25→16:13)
[2021-05-23] MEDS ORDERED: SIMETHICONE CHEW 125 MG TABLET PO PRN (16:13)
[2021-05-23] MEDS ORDERED: ACETAMINOPHEN 325 MG TABLET PO PRN (16:13)
[2021-05-23] MEDS ORDERED: NICOTINE 21 MG/24 HR PATCH TRANSDERM PRN (16:13)
[2021-05-23] MEDS ORDERED: ALUMINUM/MAGNES/SIMETH MAX STR 30 ML UDCUP PO PRN (16:13)
[2021-05-23] MEDS ORDERED: ALBUTEROL 2.5 MG/3 ML NEB RESP TX PRN (16:13)
[2021-05-23] MEDS ORDERED: ONDANSETRON 4 MG/2 ML VIAL IV PRN (16:13)
[2021-05-23] MEDS: SODIUM CHLORIDE 0.9% 1,000 ML IV SCH (18:19)
[2021-05-23] MEDS: LEVOFLOXACIN INJ 750 MG/150 ML PREMIX IV SCH (18:19)
[2021-05-23] MEDS: INSULIN REGULAR 100 UNIT/ML SUBCUT SCH ×2 (18:43→21:00)
[2021-05-23] MEDS: ALBUTEROL/IPRATROPIUM 3 ML NEB RESP TX SCH (18:54)
[2021-05-23] MEDS ORDERED: MAGNESIUM SULF RIDER 2 GM/50 ML PREMIX IV ONE (20:38)
[2021-05-23] MEDS: SIMVASTATIN 20 MG TABLET PO SCH (20:54)
[2021-05-23] MEDS: DOCUSATE SODIUM 100 MG CAPSULE PO SCH (20:54)
[2021-05-23] MEDS: traZODone 50 MG TABLET PO SCH (21:42)
[2021-05-23] MEDS: AMITRIPTYLINE 50 MG TABLET PO SCH (21:43)
[2021-05-23 23:11] LABS: Bilirubin,Urine Negative (Negative); Blood, Urine Negative (Negative); Glucose,Urine (UA) Negative (Negative); Ketones,Urine Negative (Negative); Mucus,Urine Occasional /LPF (Occasional); Nitrite,Urine Negative (Negative); Protein,Urine Negative; RBC,Urine 5 /HPF (0-4); Squamous Epithelial Cell,Urine Occasional /HPF (0-10); Urine Appearance CLEAR (Clear); Urine Color Yellow (Yellow); Urine Specific Gravity 1.043 (1.001-1.035)
[2021-05-23] MEDS: HYDROmorphone 2 MG/1 ML VIAL IV PRN (23:50)
[2021-05-24] MEDS: ALBUTEROL/IPRATROPIUM 3 ML NEB RESP TX SCH ×4 (00:02→20:00)
[2021-05-24 05:41] LABS: Basophils % 0.4 % (0.0-0.8); Eosinophils # 0.1 10*3/uL (0.0-0.87); Hematocrit 45.1 VOL% (35.7-47.0); Immature Granulocytes % 0.2 %; Immature Granulocytes Absolute 0.02 #; Lymphocytes # 2.5 10*3/uL (1.4-4.0); Lymphocytes % 29.9 % (21.3-54.2); Mean Corpuscular HGB Conc 33.3 GM/DL (32-36); Mean Platelet Volume 10.2 FL (9.6-12.0); Monocytes % 9.4 % (1.7-12.7); Neutrophils % 59.1 % (38.7-73.9); Red Blood Count 5.07 MC/CUMM (3.8-5.5); Red Cell Distribution Width 13.9 % (9.3-17.3); White Blood Count 8.4 T/CUMM (4-12)
[2021-05-24 05:42] LABS: Platelet Count 130 T/CUMM (130-400)
[2021-05-24 06:05] LABS: Calcium 9.8 MG/DL (8.5-10.1); Osmolality,Calculated 281.4 MOS/KG (273-304); Potassium 3.5 MMOL/L (3.5-5.1); Risk Ratio 3.14; Thyroid Stimulating Hormone 1.51 uIU/ml (0.358-3.74); VLDL Cholesterol 17.4 MG/DL
[2021-05-24] MEDS: HYDROmorphone 2 MG/1 ML VIAL IV PRN ×5 (06:16→22:02)
[2021-05-24] MEDS: FLUTICASONE 50 MCG NASAL SPRAY 16 GM BOTTLE BOTH NARES SCH (09:41)
[2021-05-24] MEDS: THEOPHYLLINE ER (24 HR) 400 MG TABLET PO SCH (09:42)
[2021-05-24] MEDS: DOCUSATE SODIUM 100 MG CAPSULE PO SCH ×2 (09:42→20:46)
[2021-05-24] MEDS: DULoxetine 30 MG CAPSULE PO SCH (09:42)
[2021-05-24] MEDS: INSULIN REGULAR 100 UNIT/ML SUBCUT SCH ×4 (11:17→20:46)
[2021-05-24] MEDS: SODIUM CHLORIDE 0.9% 1,000 ML IV SCH (11:18)
[2021-05-24] MEDS: Fluticasone-Umeclidin-Vilanter [Trelegy Ellipta] 100-62.5-25 mcg INH SCH (11:19)
[2021-05-24] MEDS: LEVOFLOXACIN INJ 750 MG/150 ML PREMIX IV SCH (16:31)
[2021-05-24] MEDS: traZODone 50 MG TABLET PO SCH (20:45)
[2021-05-24] MEDS: AMITRIPTYLINE 50 MG TABLET PO SCH (20:46)
[2021-05-24] MEDS: SIMVASTATIN 20 MG TABLET PO SCH (20:46)
[2021-05-24] MEDS: PREGABALIN 100 MG CAPSULE PO SCH (20:46)
[2021-05-25] MEDS: SODIUM CHLORIDE 0.9% 1,000 ML IV SCH ×2 (01:03→15:36)
[2021-05-25] MEDS: ALBUTEROL/IPRATROPIUM 3 ML NEB RESP TX SCH ×4 (01:31→19:25)
[2021-05-25] MEDS: HYDROmorphone 2 MG/1 ML VIAL IV PRN ×2 (02:04→19:49)
[2021-05-25 05:37] LABS: Basophils % 0.5 % (0.0-0.8); Eosinophils # 0.1 10*3/uL (0.0-0.87); Eosinophils % 1.1 % (0.00-10.9); Hematocrit 40.5 VOL% (35.7-47.0); Hemoglobin 13.2 GM/DL (12.0-16.0); Immature Granulocytes % 0.3 %; Immature Granulocytes Absolute 0.02 #; Lymphocytes # 2.2 10*3/uL (1.4-4.0); Lymphocytes % 35.1 % (21.3-54.2); Mean Corpuscular HGB Conc 32.6 GM/DL (32-36); Monocytes % 8.1 % (1.7-12.7); Neutrophils % 54.9 % (38.7-73.9); Platelet Count 117 T/CUMM (130-400); White Blood Count 6.3 T/CUMM (4-12)
[2021-05-25 05:57] LABS: Calcium 9.4 MG/DL (8.5-10.1); Osmolality,Calculated 287.1 MOS/KG (273-304); Potassium 3.5 MMOL/L (3.5-5.1)
[2021-05-25] MEDS ORDERED: PROMETHAZINE 25 MG/1 ML VIAL IM ONE (07:00)
[2021-05-25] MEDS ORDERED: MEPERIDINE 50 MG/1 ML VIAL IM ONE (07:00)
[2021-05-25] MEDS ORDERED: LIDOCAINE 2% 20 ML VIAL RESP TX ONE (07:30)
[2021-05-25] MEDS ORDERED: LIDOCAINE 2% VISCOUS 100 ML BOTTLE SWISH/SPIT ONE (07:30)
[2021-05-25] MEDS ORDERED: LIDOCAINE 1% 20 ML VIAL MISC INJ ONE (07:30)
[2021-05-25] MEDS ORDERED: MIDAZOLAM 2 MG/2 ML VIAL IV ONE (07:30)
[2021-05-25] MEDS: INSULIN REGULAR 100 UNIT/ML SUBCUT SCH ×4 (08:32→20:55)
[2021-05-25] MEDS ORDERED: MELATONIN 3 MG TABLET PO PRN (09:34)
[2021-05-25] MEDS ORDERED: DEXTROSE 50% 25 GM/50 ML VIAL IV PRN (09:58)
[2021-05-25] MEDS: THEOPHYLLINE ER (24 HR) 400 MG TABLET PO SCH (10:04)
[2021-05-25] MEDS: PREGABALIN 100 MG CAPSULE PO SCH ×2 (10:04→20:55)
[2021-05-25] MEDS: DULoxetine 30 MG CAPSULE PO SCH (10:04)
[2021-05-25] MEDS: DOCUSATE SODIUM 100 MG CAPSULE PO SCH ×2 (10:04→20:54)
[2021-05-25] MEDS: FLUTICASONE 50 MCG NASAL SPRAY 16 GM BOTTLE BOTH NARES SCH (10:05)
[2021-05-25] MEDS: Fluticasone-Umeclidin-Vilanter [Trelegy Ellipta] 100-62.5-25 mcg INH SCH (11:10)
[2021-05-25] MEDS: LEVOFLOXACIN INJ 750 MG/150 ML PREMIX IV SCH (16:47)
[2021-05-25] MEDS: SIMVASTATIN 20 MG TABLET PO SCH (20:55)
[2021-05-25] MEDS: traZODone 50 MG TABLET PO SCH (20:55)
[2021-05-25] MEDS: AMITRIPTYLINE 50 MG TABLET PO SCH (20:55)
[2021-05-26] MEDS: ALBUTEROL/IPRATROPIUM 3 ML NEB RESP TX SCH ×2 (00:28→08:12)
[2021-05-26 04:36] LABS: Basophils % 0.4 % (0.0-0.8); Eosinophils # 0.1 10*3/uL (0.0-0.87); Eosinophils % 1.4 % (0.00-10.9); Hematocrit 42.5 VOL% (35.7-47.0); Hemoglobin 13.5 GM/DL (12.0-16.0); Immature Granulocytes % 0.3 %; Immature Granulocytes Absolute 0.02 #; Lymphocytes # 2.1 10*3/uL (1.4-4.0); Lymphocytes % 28.9 % (21.3-54.2); Mean Corpuscular HGB Conc 31.8 GM/DL (32-36); Mean Platelet Volume 10.2 FL (9.6-12.0); Monocytes % 7.3 % (1.7-12.7); Neutrophils % 61.7 % (38.7-73.9); Platelet Count 100 T/CUMM (130-400); Red Blood Count 4.62 MC/CUMM (3.8-5.5); Red Cell Distribution Width 14.1 % (9.3-17.3); White Blood Count 7.3 T/CUMM (4-12)
[2021-05-26 04:57] LABS: Calcium 9.7 MG/DL (8.5-10.1); Osmolality,Calculated 286.1 MOS/KG (273-304); Potassium 4.9 MMOL/L (3.5-5.1)
[2021-05-26 05:02] LABS: Platelet Estimate Decreased
[2021-05-26] MEDS: SODIUM CHLORIDE 0.9% 1,000 ML IV SCH (06:20)
[2021-05-26] MEDS: INSULIN REGULAR 100 UNIT/ML SUBCUT SCH (07:33)
[2021-05-26] MEDS: THEOPHYLLINE ER (24 HR) 400 MG TABLET PO SCH (08:37)
[2021-05-26] MEDS: PREGABALIN 100 MG CAPSULE PO SCH (08:37)
[2021-05-26] MEDS: DULoxetine 30 MG CAPSULE PO SCH (08:37)
[2021-05-26] MEDS: DOCUSATE SODIUM 100 MG CAPSULE PO SCH (08:37)
[2021-05-26] MEDS: FLUTICASONE 50 MCG NASAL SPRAY 16 GM BOTTLE BOTH NARES SCH (08:38)
[2021-05-26] MEDS: Fluticasone-Umeclidin-Vilanter [Trelegy Ellipta] 100-62.5-25 mcg INH SCH (09:44)
[2021-05-26 11:38] VITALS: BP 129/70
== END 2021-05-26 11:45 | disposition home health service (06) | DRG 813 ==
LOC: N.ED 10:16 → N.5E 10:16
PROVIDERS: ADMIT Internal Medicine; ATTEND Internal Medicine